=== PATIENT | female | born 1985 | race Caucasian/White ===

== ENCOUNTER 2016-10-08 17:46 | Emergency (ER) | payer OTHER ==
[~2016-10-08] VITALS: Ht 160 cm; Wt 75.0 kg
[~2016-10-08 17:46] MED LIST: IBUP-1827 PO
[2016-10-08 18:14] VITALS: BP 120/84; PULSE 68; RESP 16; O2SAT 100
--- NOTE | 2016-10-08 20:06 | ED.REPORT ---
HPI-Headache Date of Service Oct 08, 2016 ED Provider: Dr. Denise A 31 year old female presents to the ED complaining of severe headache focused in the center of her forehead onset 1300 while she was in [place]. She subsequently experienced nausea, vomiting , diarrhea, and diaphoresis after trying to sleep off the headache. She reports mild photophobia and neck stiffness, neck stiffness probably being related to recent airline travel from [place] vacation 2 days ago. At the point of feeling most nauseous, the patient felt a sharp pain down her throat. Vomiting made the patient feel a little bit better. She denies . Nursing Notes Stated Complaint: HEADACHE,NAUSEA Chief Complaint: Headache Nursing Notes Reviewed: Yes Allergies: Coded Allergies: No Known Allergies (Verified , 07/02/14) Scheduled PRN Ibuprofen (Ibuprofen) 600 Mg Tablet 600 MG PO QID PRN PRN For Pain POST OP General Time Seen by MD: 20:05 Chief Complaint Headache Hx Obtained From: Patient Arrived By: Walk-in Sudden in Onset?: No Onset Occurred: 9 - 12 hours ago Symptom Duration: Since onset Severity: Current: Severe Severity: Maximum: Severe Recent Healthcare: No recent doctor visit Similar Sx Previous: No Past Medical History Past Medical History Notes: Patient has an IUD Past Medical History Denies histroy of severe headaches. Patient has baseline large pupils. Past Surgical History Breast Augmentation. Family History Grandmother had meningitis. Smoking History Unknown if Ever Smoker Social History She has had children. Ambulatory Status Independent Review of Systems Eyes: Reports: Photophobia (mild) Ears / Nose / Throat: Reports: Throat pain GI: Reports: Diarrhea, Nausea, Vomiting Musculoskeletal: Reports: Neck pain (neck stiffnes) Skin: Reports Diaphoresis Neurologic: Reports: Headache Complete sys rev & neg: except as marked. Female: Denies: Physical Exam Initial Vital Signs Vital Signs (First) Date Time Temp Pulse Resp B/P Pulse Ox O2 Delivery O2 Flow Rate FiO2 10/08/16 18:14 36.7 68 16 120/84 100 Room Air Initial VS: Reviewed General/Constitutional: Awake, Alert Head / Eyes: Atraumatic, Normocephalic, PERRL, EOMI Neck: Atraumatic, Supple Neurologic: Oriented X3, Speech NL ENT: Atraumatic, Airway patent Respiratory / Chest: Atraumatic, Breath sounds NL, Breath sounds = bilat, No respiratory distress, No rales, No rhonchi, No wheezing Cardiovascular: Heart rate NL, Regular rhythm, Heart sounds NL, No gallop, No murmurs, No rubs Abdomen: No guarding, No rebound Skin: Atraumatic, Color NL, Warm, Dry Upper Extremity / MS: No swelling, No edema Interpretation & Diagnostics Lab Results Interpretation Result Diagram: 10/08/16 2100 10/08/16 2100 Test 10/08/16 21:00 10/08/16 21:23 White Blood Count 9.2th/mm3 (3.8-10.1) Red Blood Count 4.03mil/mm3 (3.90-5.20) Hemoglobin 12.2g/dL (12.0-15.6) Hematocrit 36.3% (35.0-46.0) Mean Corpuscular Volume 90.1fL (81-100) Mean Corpuscular Hemoglobin 30.3pg (27.0-35.0) Mean Corpuscular Hemoglobin Concent 33.6% (32.0-37.0) Red Cell Distribution Width 12.4% (12.3-15.4) Platelet Count 273bil/L (150-400) Neutrophils (%) (Auto) 74.2% (40-74) Lymphocytes (%) (Auto) 18.1% (14-46) Monocytes (%) (Auto) 6.8% (4-12) Eosinophils (%) (Auto) 0.4% (0-5) Basophils (%) (Auto) 0.3% (0-3) Sodium Level 138mEq/L (134-144) Potassium Level 4.0mEq/L (3.5-5.2) Chloride Level 102mEq/L (97-108) Carbon Dioxide Level 21mmol/L (18-29) Blood Urea Nitrogen 11mg/dL (6-20) Creatinine 0.76mg/dL (0.57-1.00) Estimat Glomerular Filtration Rate 126mL/min (>59) Glucose Level 122mg/dL (60-99) Calcium Level 9.5mg/dL (8.5-10.1) Total Bilirubin 0.2mg/dL (0.0-1.2) Aspartate Amino Transf (AST/SGOT) 29U/L (0-50) Alanine Aminotransferase (ALT/SGPT) 23U/L (0-32) Alkaline Phosphatase 45U/L (25-150) C-Reactive Protein 1.1mg/dL (0.0-0.5) Total Protein 7.6g/dL (6.4-8.4) Albumin 4.3g/dL (3.4-5.0) HCG Beta Subunit 0.500mIU/mL Hold Cerrato Top Tube Received (Received) Hold Urine Received (Received) CT Head Interpretation IMPRESSION: 1. No acute intracranial process. Dictated by: Andra Allen M.D. on 10/08/2016 at 21:15 Approved by: Andra Allen M.D. on 10/08/2016 at 21:18 Study: Head CT no contrast Interpretation / Wet Read by: Interpret - Radiologist Re-Eval/Medical Decision Med Decision/Clinical Course Labs and CT were reassuring. She felt better with analgesia. I recommended a lumbar puncture to rule out subarachnoid hemorrhage. I felt that meningitis was less likely but this too should be ruled out. I declined. She wanted go home get some rest. She did assure me that she return if she had any problems or any worsening symptoms. I recommend very close outpatient follow-up and that she reconsider the lumbar puncture. I spent a subarachnoid hemorrhage can be life-threatening and/or severely disabling. She agrees to return if her symptoms have not improved significantly. Source of Hx: Old records Re-Evaluation/Progress : Time of Eval: 22:39 Re-Evaluation/Progress Note: Rechecked patient, explained test results, diagnosis, and plan for discharge. Patient understands and agrees with the plan. All questions addressed. Counseled Regarding: Diagnosis, Lab results, Need for follow-up, When/why to return to ED Discharge & Departure Shift Change Sign-Out Response to Therapy: Worsened Impression: Primary Impression: Headache Headache type: primary thunderclap headache Qualified Code: G44.53 - Primary thunderclap headache Disposition: Home Discharge Condition All VS Reviewed: Yes Condition: Stable Patient Instructions: Acute Headache (ED) Additional Instructions: The CAT scan of your brain was normal. The laboratory work was normal and reassuring. A spinal tap is recommended/necessary to completely rule out subtle subarachnoid hemorrhage/brain bleeding as well as meningitis. Consider this procedure. If you change your mind about this procedure then come back and we will perform this. It is a very safe procedure. If you developsa fever , stiff neck or any worsening symptoms than it is absolutely necessary that we perform this procedure. Otherwise rest tonight. Do not drive. Set up follow- up with your primary care physician. Call tomorrow to set this up. Do not hesitate to return if any problems or any new or worsening symptoms. Referrals: Mohit Loo MD (PCP) Scribe Attestation Portions of this note were transcribed by Sidney Morrison. I, Dr. Denise personally performed the history, physical exam and medical decision-making; I reviewed and confirmed the accuracy of the information in the transcribed note. Signed by: Bi Kennedy, 10/08/2016, 2330. copies to: Mohit Loo MD, Todd P DO Oct 08, 2016 20:06 Sidney Morrison Oct 08, 2016 20:22
[2016-10-08] MEDS ORDERED: 0.9% Sodium Chloride 1,000 ML IV SCH (20:25)
[2016-10-08] MEDS ORDERED: Ondansetron 2 mg/mL 2 mL Inj IVPUSH PRN (20:25)
--- NOTE | 2016-10-08 21:19 | DRSVH ---
PROCEDURE: CT BRAIN WITHOUT CONTRAST ([id number]) INDICATIONS: sudden severe frontal headache TECHNIQUE: Noncontrast 4.5 mm thick angled axial sections acquired from the foramen magnum to the vertex, with c oronal reformats. COMPARISON: None. FINDINGS: Image quality: Excellent. CSF spaces: Basal cisterns are patent. No extra-axial fluid collections. Ventricles are normal in size and shape. Brain: No midline shift. No intracranial masses or hemorrhage. Diaz-white matter interface is norm al. Skull and face: Calvarium and visualized facial bones are intact, without suspicious lesions. Sinuses: Visualized sinuses and mastoids are clear. IMPRESSION: 1. No acute intracranial process. Dictated by: Andra Allen M.D. on 10/08/2016 at 21:15 Approved by: Andra Allen M.D. on 10/08/2016 at 21:18
[2016-10-08 21:25] LABS: BASOPHILS % (AUTO) 0.3 % (0-3); EOSINOPHILS % (AUTO) 0.4 % (0-5); MONOCYTES % (AUTO) 6.8 % (4-12); Mean Corpuscular Hemoglobin 30.3 pg (27.0-35.0); Mean Corpuscular Volume 90.1 fL (81-100); NEUTROPHILS % (AUTO) 74.2 % (40-74); Platelet Count 273 bil/L (150-400)
[2016-10-08 23:56] VITALS: BP 110/66; PULSE 64; RESP 20; O2SAT 97
== END 2016-10-08 23:57 | disposition home or self-care (01) ==
LOC: SED 17:46
DX: G44.53 Primary thunderclap headache (principal)
CPT/HCPCS: 36415; 70450; 80053; 84702; 85025; 86140; 96361; 96374; 96375; 96376; 99285; J1200; J1885; J2060; J2405; J7030